=== PATIENT | male | born 1980 ===

== ENCOUNTER 2020-11-30 09:21 | Outpatient (CLI) | payer OTHER, SELFPAY | END 2020-11-30 09:22 | disposition home or self-care (01) | LOC: ANHCOVIDVC 09:22 | PROVIDERS: PCP Family Medicine | DX: Z23 Encounter for immunization (principal) | CPT/HCPCS: 0001A; 91300 ==

== ENCOUNTER 2020-12-21 09:38 | Outpatient (CLI) | payer OTHER, SELFPAY | END 2020-12-21 09:39 | disposition home or self-care (01) | LOC: ANHCOVIDVC 09:38 | PROVIDERS: PCP Family Medicine | DX: Z23 Encounter for immunization (principal) | CPT/HCPCS: 0002A; 91300 ==

== ENCOUNTER 2021-07-20 12:38 | Outpatient (CLI) | payer BC, SELFPAY ==
[2021-07-20 14:21] LABS: SARS-CoV-2 RNA PCR Negative (Negative)
== END 2021-07-20 12:39 | disposition home or self-care (01) ==
LOC: CHSLAB 12:42
PROVIDERS: PCP Nurse Practitioner Family; Visit Provider Nurse Practitioner Family
DX: Z20.822 Contact with and (suspected) exposure to COVID-19 (principal)
CPT/HCPCS: C9803; U0003; U0005